=== PATIENT | male | born 1960 | race Caucasian/White ===

== ENCOUNTER 2020-10-03 21:45 | Observation (INO) | payer BC ==
[~2020-10-03] VITALS: Ht 180.3 cm; Wt 140.9 kg
[2020-10-03 22:14] VITALS: BP 144/62; PULSE 76; TEMP 97.9
[2020-10-03] MEDS ORDERED: ZESTRIL 20MG TA20 MG PO (23:32)
[2020-10-03] MEDS ORDERED: LIPITOR20 MG PO (23:33)
[2020-10-03] MEDS ORDERED: ASPIRIN 32325 MG/TAB PO (23:34)
[2020-10-03] MEDS ORDERED: TAPAZOLE5 MG PO (23:35)
[2020-10-03] MEDS ORDERED: HCTZ12.5TAB PO (23:35)
[2020-10-03] MEDS ORDERED: COREG12.5 MG PO (23:36)
[2020-10-03] MEDS ORDERED: VITAMIN D31000 IU PO (23:36)
[2020-10-04] VITALS (11 sets, daily range): BP systolic 91–147; BP diastolic 40–79; PULSE 51–83; TEMP 97.3–97.7
--- NOTE | 2020-10-04 00:08 | NUR ---
2300- DR HEART AT BEDSIDE. HX AND ASSESSMENT OBTAINED. MED REC DONE. NKDA. LT AC IV SITE FLUSHED. CPAP W O2 AT BEDSIDE. POC DISCUSSED AND VERBAL DISCUSS RISK AND BENFIT BY DR HEART. ORDERS REVIEWED, PT V/U OF PLAN. DENIES ANY PAIN OR NAUSEA. WILL BE NPO AT 0300. SCD APPLIED FOR VTE.
--- NOTE | 2020-10-04 06:32 | NUR ---
Rested through the night without incident. Denies pain or nausea this am. Oral swabs for moisture, npo for 11am procedure.
--- NOTE | 2020-10-04 09:24 | NUR ---
Pt awake and oriented, no pain complaints. He is aware that he will be having surgery today, questions answered. Pt is independent and is steady on his feet. He is aware that he is to not have anything to eat or drink
--- NOTE | 2020-10-04 11:08 | NUR ---
Pt off the floor for surgery
--- NOTE | 2020-10-04 13:10 | NUR ---
Pt still in sugery
[2020-10-04] MEDS ORDERED: NORCO 325 MG-51 TAB PO (13:30)
--- NOTE | 2020-10-04 14:13 | NUR ---
Pt. back from PACU. Report received from N[facility]. Pt. alert and answering questions appropriately. Pt. reports pain and is groaining. Pt. reports he would like to eat. Vital signs WNL, pt. has 2L O2 NC on. Pt.'s at bedside. Three lap sites to abdomen visible, surgi-glu in place, three lap sites C/D/I.
--- NOTE | 2020-10-04 16:36 | NUR ---
Pt resting in bed. He has tolerated a general diet. At rest, pain is 2/10, with movement/cough, pt reports up to 7/10. Educated pt on pain management and oral pain medication. Pt is aware that he has orders to go home, pt reports not sure if he feels comfortable going home. Educated him that he needs to be able to void and ambulate. went to [facility]. No other needs, will continue to monitor
--- NOTE | 2020-10-04 17:42 | NUR ---
Pt. progressing w/ plan of care. Pt. ambulated the unit two laps and tolerated ambulation well. Pt. reports 8/10 pain after ambulation, pt. medicated w/ PRN Thompson. Pt. voided. Plan to continue to encourage pt. to ambulate and monitor pain.
--- NOTE | 2020-10-04 18:00 | NUR ---
Pt has continued to do well. Reports pain is tolerable and he would like to go home. Reviewed discharge instructions with pt and his . went earlier to [facility] for pain medication. Informed they will have to call Tuesday for follow up appointment and discussed pain management as well as importance of some activity. Informed pt and his that we would print out the paperwork and go over discharge again prior to him leaving. Pt reported that he wanted to eat dinner and ambulate some more before leaving
--- NOTE | 2020-10-04 19:16 | NUR ---
Discharge paperwork reviewed with patient and . Pt. verbalized understanding of discharge instructions and all questions answered. Pt. ambulating unit and tolerating ambulation well. Plan for oncoming [facility] Quinter[facility] to take out IV and patient to go home with .
== END 2020-10-04 19:50 | disposition home or self-care (01) ==
LOC: MEDICAL 21:45 → SURG 22:05
PROVIDERS: ADMIT Surgery
DX: K43.6 Other and unspecified ventral hernia with obstruction, without gangrene (principal); T85.898A Other specified complication of other internal prosthetic devices, implants and grafts, initial encounter; I10 Essential (primary) hypertension; I25.10 Atherosclerotic heart disease of native coronary artery without angina pectoris; E78.5 Hyperlipidemia, unspecified; E66.01 Morbid (severe) obesity due to excess calories; E06.3 Autoimmune thyroiditis; G47.33 Obstructive sleep apnea (adult) (pediatric); Z79.82 Long term (current) use of aspirin; Z68.41 Body mass index [BMI] 40.0-44.9, adult; Z79.899 Other long term (current) drug therapy; Z87.891 Personal history of nicotine dependence; Z95.1 Presence of aortocoronary bypass graft; Z99.89 Dependence on other enabling machines and devices
CPT/HCPCS: C1781; G0378; J0330; J0690; J1100; J1170; J1885; J2405; J2704; J3010